=== PATIENT | female | born 1955 | race Caucasian/White ===

== ENCOUNTER → 2019-03-17 | Outpatient (CLI) | payer BC ==
[2019-03-17] MEDS: IOHEXOL 300MG/ML 150 ML BTL (09:30)
[2019-03-17] MEDS: SOD CHLORIDE 0.9% 100 ML (09:30)
== END | disposition home or self-care (01) ==
LOC: C/S 07:59
DX: R10.2 Pelvic and perineal pain (principal)
CPT/HCPCS: 74177